=== PATIENT | male | born 1945 | race Caucasian/White ===

== ENCOUNTER 2017-04-17 13:57 | Inpatient (IN) | payer MEDICARE ==
[~2017-04-17] VITALS: Ht 175.3 cm; Wt 57.0 kg
[~2017-04-17 13:57] MED LIST: ACET1CAP18 PO; ATOR20TA15 PO; CLON1 PO; METO50TA11 PO; MIRTA15 PO; PLAV75TA29 PO; SERT-132 PO; TAMS5CAP PO; TRAZ100T4 PO; ULTR50TA5 PO
[2017-04-17 13:59] VITALS: BP 130/55; PULSE 115; RESP 14; TEMP 98.4; O2SAT 95
--- NOTE | 2017-04-17 14:02 | PD ---
Physical Exam Time Seen by Provider: 14:01 Narrative 71yo M c/o not being able to urinate since yesterday. Denies fever, vomiting. Patient seen in triage. VS reviewed. Awaiting bed placement. Data Data Last Documented VS Vital Signs Date Time Temp Pulse Resp B/P Pulse Ox O2 Delivery O2 Flow Rate FiO2 04/17/17 13:59 98.4 115 14 130/55 95 MDM Supervised Visit with CARO: Mikala Salazar Apr 17, 2017 14:02
[2017-04-17 15:01] VITALS: BP 154/66; PULSE 93; RESP 16; O2SAT 98
[2017-04-17] MEDS ORDERED: TRAZ100T6 PO (15:07)
[2017-04-17] MEDS ORDERED: SODIUM CHLOR 0.9% 1000 ML INJ 1,000 ML IV ONE ×3 (15:30→16:45)
[2017-04-17 16:04] LABS: AUTOMATED NEUTROPHIL # 13.7 TH/MM3 (1.8-7.7); BASOPHIL # 0.1 TH/MM3 (0-0.2); BASOPHIL % 0.4 % (0.0-2.0); EOSINOPHIL % 0.1 % (0.0-4.0); HEMATOCRIT 46.3 % (39.0-51.0); HEMO FLAGS DIFF FINAL; LYMPH % 13.9 % (9.0-44.0); LYMPHOCYTE # 2.5 TH/MM3 (1.0-4.8); MEAN CELL VOLUME 95.4 FL (80.0-100.0); MEAN CORPUSCULAR HEMOGLOBIN 32.4 PG (27.0-34.0); MONO % 9.2 % (0.0-8.0); NEUT % 76.4 % (16.0-70.0); PLATELET COUNT 318 TH/MM3 (150-450); RED BLOOD COUNT 4.85 MIL/MM3 (4.50-5.90); WHITE BLOOD COUNT 17.9 TH/MM3 (4.0-11.0)
[2017-04-17 16:09] LABS: BACTERIA, URINE MANY /hpf; BLOOD, URINE SMALL (NEG); COMMENT (UR) CULTURE INDICATED; CULTURE IF INDICATED CULTURE INDICATED; GLUCOSE,URINE NEG (NEG); HYALINE CAST, URINE 9 /lpf (RARE); KETONE, URINE TRACE mg/dL (NEG); MUCUS URINE MANY /lpf (OCC); URINE COLOR YELLOW (YELLW/STRAW)
[2017-04-17 16:16] LABS: NITRITE,URINE POS (NEG)
[2017-04-17 16:27] LABS: ALKALINE PHOSPHATASE 86 U/L (45-117); ALT (GPT) 9 U/L (12-78); TOTAL BILIRUBIN ADULT 0.8 MG/DL (0.2-1.0)
[2017-04-17 16:30] LABS: ANION GAP 9 MEQ/L (5-15); AST (GOT) 13 U/L (15-37); BLOOD UREA NITROGEN 19 MG/DL (7-18); CHLORIDE 99 MEQ/L (98-107); GLOMERULAR FILTRATION RATE 61 ML/MIN (>89); POTASSIUM 3.6 MEQ/L (3.5-5.1); SODIUM (NA) 137 MEQ/L (136-145)
[2017-04-17] MEDS ORDERED: cefTRIAXone INJ 1,000 MG in SODIUM CHLORIDE 0.9% INJ 100 ML IV ONE (16:45)
--- NOTE | 2017-04-17 17:26 | HHI.HP ---
[facility] Service Family Medicine Primary Care Physician Anitra Alexander MD Admission Diagnosis urinary tract infection, sepsis Diagnoses: International Travel<30 Days: No Contact w/Intl Traveler<30days: No Known Affected Area: No History of Present Illness 71 year old male presents with urinary retention and urinary tract infection. He last urinated last night at 10 PM. Besides urinary retention he has no complaints. He reports no dysuria, fevers, night sweats, recent weight loss. He states that he had urinary retention about 6 years ago. He required Hernandez catheter at that time for relief. He followed up with a urologist and nothing was found. He reports no history of BPH or malignancies. He has no sexual activity in the last year. He had some suprapubic tenderness before catheterization but feels fine now. He reports no CVA tenderness. He has not seen blood in his urine. Before the retention he reports no weak stream or difficulty initiating a stream. He reports no recent new medications that could explain retention. There is no foul smell to his urine. He reports no urethral discharge. He has no dry mouth, lightheadedness with standing, fevers, abdominal pain, nausea, vomiting, or diarrhea. His primary care doctor is Dr. Anitra Alexander in the [facility]. Review of Systems Constitutional: DENIES: Diaphoretic episodes, Fatigue, Fever, Weight gain, Weight loss, Chills, Change in appetite, Night Sweats Endocrine: DENIES: Polydipsia, Polyuria Eyes: DENIES: Blurred vision, Photosensitivity Ears, nose, mouth, throat: DENIES: Vertigo, Throat pain, Running Nose, Sinus Pain Respiratory: DENIES: Cough, Wheezing, Sputum production, Shortness of breath Cardiovascular: DENIES: Chest pain, Dyspnea on Exertion, Lower Extremity Edema , Claudication Gastrointestinal: DENIES: Abdominal pain, Black stools, Bloody stools, Constipation, Diarrhea, Nausea, Vomiting, Difficulty Swallowing Genitourinary: DENIES: Urinary frequency, Urinary incontinence, Urgency, Hematuria, Dysuria, Nocturia, Penile Discharge Musculoskeletal: DENIES: Joint pain, Muscle aches, Stiffness, Back pain, Neck pain Integumentary: DENIES: Rash Hematologic/lymphatic: DENIES: Lymphadenopathy Immunologic/allergic: DENIES: Eczema, Urticaria Neurologic: DENIES: Headache, Seizures Psychiatric: COMPLAINS OF: Anxiety, DENIES: Mood changes, Depression Past Family Social History Past Medical History Two LA's One stroke CABG 5 years ago COPD Hyperlipidemia Hypertension Urinary retention and UTI once before Past Surgical History CABG 5 years ago Reported Medications Reported Meds & Active Scripts Active Ultram (Tramadol HCl) 50 Mg Tab 50 Mg PO Q6H PRN Sertraline (Sertraline HCl) 50 Mg Tab 50 Mg PO DAILY Metoprolol Succinate ER 24 HR (Metoprolol Succinate) 50 Mg Tab 50 Mg PO BID Plavix (Clopidogrel Bisulfate) 75 Mg Tab 75 Mg PO DAILY Klonopin (Clonazepam) 1 Mg Tab 1 Mg PO BID Flomax (Tamsulosin HCl) 0.4 Mg Cap 0.4 Mg PO HS Atorvastatin (Atorvastatin Calcium) 20 Mg Tab 20 Mg PO HS Reported Trazodone (Trazodone HCl) 100 Mg Tablet 100 Mg PO HS PRN Mirtazapine 15 Mg Tab 15 Mg PO HS Allergies: Coded Allergies: No Known Allergies (Verified , 04/17/17) Active Ordered Medications Inpatient Medications Atorvastatin Calcium (Lipitor) 20 mg HS PO ; Start 04/17/17 at 21:00; Status UNV Ceftriaxone Sodium 1000 mg/ Sodium Chloride 100 ml @ 200 mls/hr ONCE ONCE IV Last administered on 04/17/17 16:45; Start 04/17/17 at 16:45; Stop 04/17/17 at 17:14; Status DC Clonazepam (KlonoPIN) 1 mg BID PO ; Start 04/17/17 at 21:00; Status UNV Clopidogrel Bisulfate (Plavix) 75 mg DAILY PO ; Start 04/18/17 at 09:00; Status UNV Metoprolol Succinate (Toprol Xl) 50 mg BID PO ; Start 04/17/17 at 21:00; Status UNV Mirtazapine (Remeron) 15 mg HS PO ; Start 04/17/17 at 21:00; Status UNV Non-Formulary Medication 100 mg HS PRN PO SLEEP; Start 04/17/17 at 17:30; Status UNV Sertraline HCl (Zoloft) 50 mg DAILY PO ; Start 04/18/17 at 09:00; Status UNV Sodium Chloride (NS 1000 ml Inj) 1,000 ml @ 999 mls/hr BOLUS ONCE IV Last administered on 04/17/17 17:05; Start 04/17/17 at 16:45; Stop 04/17/17 at 17:45 ; Status DC Tamsulosin HCl (Flomax) 0.4 mg HS PO ; Start 04/17/17 at 21:00; Status UNV Family History Mom of liver cancer Dad of heart attack age 57 Grandson - ulcerative colitis Social History smokes 1/2 pack per day since age 24 Alcohol use: none Drug use: none a year ago Live with daughter, two grandchildren 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 Normal skin turgor. HEAD: Atraumatic. Normocephalic. No temporal or scalp tenderness. EYES: Pupils equal round and reactive. Extraocular motions intact. No scleral icterus. No injection or drainage. ENT: Nose without bleeding, purulent drainage or septal hematoma. Throat without erythema, tonsillar hypertrophy or exudate. Uvula midline. Airway patent. Moist mucous membranes. NECK: Trachea midline. No JVD or lymphadenopathy. Supple, nontender, no meningeal signs. CARDIOVASCULAR: Regular rate and rhythm without murmurs, gallops, or rubs. Pulse in 90's. RESPIRATORY: Clear to auscultation. Breath sounds equal bilaterally. No wheezes , rales, or rhonchi. GASTROINTESTINAL: Abdomen soft, non-tender, nondistended. No hepato-splenomegaly , or palpable masses. No guarding. : No CVA tenderness. Prostate is not palpable on MARGE. No urethral discharge. Hernandez catheter in place with small amount of dark brownish urine. No bladder discomfort with palpation. MUSCULOSKELETAL: Extremities without clubbing, cyanosis, or edema. No joint tenderness, effusion, or edema noted. No calf tenderness. Negative Homans sign bilaterally. NEUROLOGICAL: Awake and alert. Cranial nerves II through XII intact. Motor and sensory grossly within normal limits. Five out of 5 muscle strength in all muscle groups. Normal speech. Laboratory Laboratory Tests Test 04/17/17 15:35 White Blood Count 17.9 Red Blood Count 4.85 Hemoglobin 15.7 Hematocrit 46.3 Mean Corpuscular Volume 95.4 Mean Corpuscular Hemoglobin 32.4 Mean Corpuscular Hemoglobin 34.0 Concent Red Cell Distribution Width 14.0 Platelet Count 318 Mean Platelet Volume 7.9 Neutrophils (%) (Auto) 76.4 Lymphocytes (%) (Auto) 13.9 Monocytes (%) (Auto) 9.2 Eosinophils (%) (Auto) 0.1 Basophils (%) (Auto) 0.4 Neutrophils # (Auto) 13.7 Lymphocytes # (Auto) 2.5 Monocytes # (Auto) 1.6 Eosinophils # (Auto) 0.0 Basophils # (Auto) 0.1 CBC Comment DIFF FINAL Differential Comment Urine Color YELLOW Urine Turbidity HAZY Urine pH 5.0 Urine Specific Kathryn 1.023 Urine Protein TRACE Urine Glucose (UA) NEG Urine Ketones TRACE Urine Occult Blood SMALL Urine Nitrite POS Urine Bilirubin NEG Urine Urobilinogen LESS THAN 2.0 Urine Leukocyte Esterase LARGE Urine RBC 6 Urine WBC 108 Urine WBC Clumps RARE Urine Amorphous Sediment RARE Urine Bacteria MANY Urine Hyaline Casts 9 Urine Mucus MANY Microscopic Urinalysis Comment CULTURE INDICATED Sodium Level 137 Potassium Level 3.6 Chloride Level 99 Carbon Dioxide Level 29.0 Anion Gap 9 Blood Urea Nitrogen 19 Creatinine 1.17 Estimat Glomerular Filtration 61 Rate Random Glucose 107 Calcium Level 9.2 Total Bilirubin 0.8 Aspartate Amino Transf 13 (AST/SGOT) Alanine Aminotransferase 9 (ALT/SGPT) Alkaline Phosphatase 86 Total Protein 7.4 Albumin 3.5 Date/Time Procedure Status Source Growth 04/17/17 17:00 Aerobic Blood Culture Received Blood Peripheral Pending 04/17/17 17:00 Anaerobic Blood Culture Received Blood Peripheral Pending 04/17/17 15:35 Urine Culture Received Urine Clean Catch Pending Result Diagram: 04/17/17 1535 04/17/17 1535 Septic Shock Reassessment Heart: Regular rate and rhythm Lungs: Clear Skin: Warm Capillary Refill: <2 seconds Assessment and Plan Assessment and Plan 71 year old male with acute urinary retention and urinary tract infection. Code Status DNR Discussed Condition With Discussed with Dr. Saunders, will discuss with day team Problem List: (1) Acute urinary retention Status: Acute Plan: Has not urinated since 10 PM last night. No reported history of BPH, but does have BPH in his problem list. On physical exam, prostate is not palpable. BUN 19, Creatinine 1.17. - CT abdomen/pelvis, no contrast, to further evaluate for causes of obstruction. - Consult urology - Continue Tamsulosin 0.4 mg qHS - Maintain Hernandez catheter (2) Urinary tract infection Status: Acute Plan: Urine with nitrites, large eukocyte esterase, 108 WBC, and many bacteria. Pulse up to 115 at admission, now in the 90's. No fevers recorded. Lactic acid normal. WBC 17.9. No CVA tenderness. - Rocephin 1 g daily, started on 04/17. - Give IVF as needed to maintain adequate hydration. - Follow blood cultures - Follow urine cultures, adjust antibiotics as needed. (3) Nutrition, metabolism, and development symptoms Status: Acute Plan: - IVF with NS at maintenance, no weight recorded in chart, nursing order to obtain patient weight - Give regular diet - Monitor electrolytes (4) No contraindication to deep vein thrombosis (DVT) prophylaxis Status: Acute Plan: - Lovenox 40 mg daily - Bilateral SCD's Physician Certification 2 Midnight Certification Type: Admission for Inpatient Services Order for Inpatient Services The services are ordered in accordance with Medicare regulations or non- Medicare payer requirements, as applicable. In the case of services not specified as inpatient-only, they are appropriately provided as inpatient services in accordance with the 2-midnight benchmark. Estimated LOS (days): 3 days is the estimated time the patient will need to remain in the hospital, assuming treatment plan goals are met and no additional complications. Post-Hospital Plan: Home Problem Qualifiers (1) Urinary tract infection: Qualified Code: N30.00 - Acute cystitis without hematuria Timothy Sharma MD R3 Apr 17, 2017 17:26 Alkaline Phosphatase 86 Total Protein 7.4 Albumin 3.5 Date/Time Procedure Status Source Growth 04/17/17 17:00 Aerobic Blood Culture Received Blood Peripheral Pending 04/17/17 17:00 Anaerobic Blood Culture Received Blood Peripheral Pending 04/17/17 15:35 Urine Culture Received Urine Clean Catch Pending Result Diagram: 04/17/17 1535 04/17/17 1535 Septic Shock Reassessment Heart: Regular rate and rhythm Lungs: Clear Skin: Warm Capillary Refill: <2 seconds Assessment and Plan Assessment and Plan 71 year old male with acute urinary retention and urinary tract infection. Code Status DNR Discussed Condition With Discussed with Dr. Saunders, will discuss with day team Problem List: (1) Acute urinary retention Status: Acute Plan: Has not urinated since 10 PM last night. No reported history of BPH, but does have BPH in his problem list. On physical exam, prostate is not palpable. BUN 19, Creatinine 1.17. - CT abdomen/pelvis, no contrast, to further evaluate for causes of obstruction. - Consult urology - Continue Tamsulosin 0.4 mg qHS - Maintain Hernandez catheter (2) Urinary tract infection Status: Acute Plan: Urine with nitrites, large eukocyte esterase, 108 WBC, and many bacteria. Pulse up to 115 at admission, now in the 90's. No fevers recorded. Lactic acid normal. WBC 17.9. No CVA tenderness. - Rocephin 1 g daily, started on 04/17. - Give IVF as needed to maintain adequate hydration. - Follow blood cultures - Follow urine cultures, adjust antibiotics as needed. (3) Nutrition, metabolism, and development symptoms Status: Acute Plan: - IVF with NS at maintenance, no weight recorded in chart, nursing order to obtain patient weight - Give regular diet - Monitor electrolytes (4) No contraindication to deep vein thrombosis (DVT) prophylaxis Status: Acute Plan: - Lovenox 40 mg daily - Bilateral SCD's Physician Certification 2 Midnight Certification Type: Admission for Inpatient Services Order for Inpatient Services The services are ordered in accordance with Medicare regulations or non- Medicare payer requirements, as applicable. In the case of services not specified as inpatient-only, they are appropriately provided as inpatient services in accordance with the 2-midnight benchmark. Estimated LOS (days): 3 days is the estimated time the patient will need to remain in the hospital, assuming treatment plan goals are met and no additional complications. Post-Hospital Plan: Home Timothy Sharma MD R3 Apr 17, 2017 17:26
--- NOTE | 2017-04-17 17:44 | PD ---
HPI Chief Complaint: Complaint Time Seen by Provider: 15:15 Travel History International Travel<30 days: No Contact w/Intl Traveler<30days: No Traveled to known affect area: No History of Present Illness HPI This is a 71-year-old male who reports that he hasn't been able to urinate since yesterday and he has some lower abdominal discomfort and burning his urethra, constant, moderate severity. He denies any fevers, chills, nausea or vomiting. He says this is happened to her before and he needed a Hernandez catheter. He said he went to his urologist and they couldn't find anything wrong. PFSH Past Medical History Blood Disorders: No Bipolar Disorder: Yes Anxiety: Yes Depression: Yes Heart Rhythm Problems: Yes (IRREGULARITY) Cancer: No Cardiovascular Problems: Yes ( STENT X 5) High Cholesterol: Yes Chest Pain: Yes Congestive Heart Failure: No Cerebrovascular Accident: Yes (09/2009) Coronary Artery Disease: Yes Endocrine: No Gastrointestinal Disorders: No Genitourinary: No Hypertension: No Immune Disorder: No Musculoskeletal: No Neurologic: Yes Psychiatric: Yes Reproductive: No Respiratory: No Myocardial Infarction: Yes (x2) Influenza Vaccination: Yes Past Surgical History Abdominal Surgery: No Cardiac Surgery: Yes (cardiac by-pass jul 2009 quad angioplasty right leg) Coronary Artery Bypass Graft: Yes Coronary Stent: Yes (X 5) Ear Surgery: No Endocrine Surgery: No Eye Surgery: No Genitourinary Surgery: No Gynecologic Surgery: No Neurologic Surgery: No Oral Surgery: No Thoracic Surgery: No Tonsillectomy: Yes Other Surgery: Yes (bilat fem-pop bypass) Social History Alcohol Use: Yes (social) Tobacco Use: Yes (1 PPD) Substance Use: No Allergies-Medications (Allergen,Severity, Reaction): Coded Allergies: No Known Allergies (Verified , 04/17/17) Reported Meds & Prescriptions Reported Meds & Active Scripts Active Ultram (Tramadol HCl) 50 Mg Tab 50 Mg PO Q6H PRN Sertraline (Sertraline HCl) 50 Mg Tab 50 Mg PO DAILY Metoprolol Succinate ER 24 HR (Metoprolol Succinate) 50 Mg Tab 50 Mg PO BID Plavix (Clopidogrel Bisulfate) 75 Mg Tab 75 Mg PO DAILY Klonopin (Clonazepam) 1 Mg Tab 1 Mg PO BID Flomax (Tamsulosin HCl) 0.4 Mg Cap 0.4 Mg PO HS Atorvastatin (Atorvastatin Calcium) 20 Mg Tab 20 Mg PO HS Reported Trazodone (Trazodone HCl) 100 Mg Tablet 100 Mg PO HS PRN Mirtazapine 15 Mg Tab 15 Mg PO HS Review of Systems Except as stated in HPI: all other systems reviewed are Neg Physical Exam Narrative GENERAL: Frail, chronically ill-appearing male in no acute distress SKIN: Focused skin assessment warm and dry. HEAD: Atraumatic. Normocephalic. EYES: Pupils equal and round. No injection or drainage. ENT: Moist mucous membranes NECK: Trachea midline. CARDIOVASCULAR: Regular rate and rhythm. No murmur appreciated. RESPIRATORY: Clear to auscultation. Breath sounds equal bilaterally. GASTROINTESTINAL: Abdomen soft, non-tender, nondistended. MUSCULOSKELETAL: No obvious deformities. NEUROLOGICAL: Awake and alert. No obvious cranial nerve deficits. Moving all extremities. PSYCHIATRIC: Appropriate mood and affect; insight and judgment normal. Data Data Last Documented VS Vital Signs Date Time Temp Pulse Resp B/P Pulse Ox O2 Delivery O2 Flow Rate FiO2 04/17/17 15:01 93 16 154/66 98 Room Air 04/17/17 13:59 98.4 Orders Complete Blood Count With Diff (04/17/17 15:17) Comprehensive Metabolic Panel (04/17/17 15:17) Urinary Catheter Insert/Apply (04/17/17 15:17) Urinalysis - C+S If Indicated (04/17/17 15:17) Sodium Chlor 0.9% 1000 Ml Inj (Ns 1000 M (04/17/17 15:30) Urine Culture (04/17/17 15:35) Ceftriaxone Inj (Rocephin Inj) (04/17/17 16:45) Blood Culture (04/17/17 16:42) Lactic Acid Sepsis Protocol (04/17/17 16:42) Sodium Chlor 0.9% 1000 Ml Inj (Ns 1000 M (04/17/17 16:45) Sodium Chlor 0.9% 1000 Ml Inj (Ns 1000 M (04/17/17 16:45) Admit Order (Ed Use Only) (04/17/17 17:05) Labs Laboratory Tests Test 04/17/17 04/17/17 15:35 17:00 White Blood Count 17.9 TH/MM3 Red Blood Count 4.85 MIL/MM3 Hemoglobin 15.7 GM/DL Hematocrit 46.3 % Mean Corpuscular Volume 95.4 FL Mean Corpuscular Hemoglobin 32.4 PG Mean Corpuscular Hemoglobin 34.0 % Concent Red Cell Distribution Width 14.0 % Platelet Count 318 TH/MM3 Mean Platelet Volume 7.9 FL Neutrophils (%) (Auto) 76.4 % Lymphocytes (%) (Auto) 13.9 % Monocytes (%) (Auto) 9.2 % Eosinophils (%) (Auto) 0.1 % Basophils (%) (Auto) 0.4 % Neutrophils # (Auto) 13.7 TH/MM3 Lymphocytes # (Auto) 2.5 TH/MM3 Monocytes # (Auto) 1.6 TH/MM3 Eosinophils # (Auto) 0.0 TH/MM3 Basophils # (Auto) 0.1 TH/MM3 CBC Comment DIFF FINAL Differential Comment Urine Color YELLOW Urine Turbidity HAZY Urine pH 5.0 Urine Specific [place] 1.023 Urine Protein TRACE mg/dL Urine Glucose (UA) NEG mg/dL Urine Ketones TRACE mg/dL Urine Occult Blood SMALL Urine Nitrite POS Urine Bilirubin NEG Urine Urobilinogen LESS THAN 2.0 MG/DL Urine Leukocyte Esterase LARGE Urine RBC 6 /hpf Urine WBC 108 /hpf Urine WBC Clumps RARE Urine Amorphous Sediment RARE Urine Bacteria MANY /hpf Urine Hyaline Casts 9 /lpf Urine Mucus MANY /lpf Microscopic Urinalysis Comment CULTURE INDICATED Sodium Level 137 MEQ/L Potassium Level 3.6 MEQ/L Chloride Level 99 MEQ/L Carbon Dioxide Level 29.0 MEQ/L Anion Gap 9 MEQ/L Blood Urea Nitrogen 19 MG/DL Creatinine 1.17 MG/DL Estimat Glomerular Filtration 61 ML/MIN Rate Random Glucose 107 MG/DL Calcium Level 9.2 MG/DL Total Bilirubin 0.8 MG/DL Aspartate Amino Transf 13 U/L (AST/SGOT) Alanine Aminotransferase 9 U/L (ALT/SGPT) Alkaline Phosphatase 86 U/L Total Protein 7.4 GM/DL Albumin 3.5 GM/DL Lactic Acid Level 1.9 mmol/L MDM Medical Decision Making Medical Screen Exam Complete: Yes Emergency Medical Condition: Yes Interpretation(s) Afebrile, tachycardic, normotensive Leukocytosis of 17.9 76% neutrophils Electrolytes are reassuring Lactic acid is 1.9 Urinalysis: Urinary tract infection Differential Diagnosis Urinary tract infection, pyelonephritis, acute urinary retention, BPH Narrative Course This is a 71-year-old male who presents to the emergency department with decreased urination. He was placed on a monitor and an IV was established. Labs demonstrate a leukocytosis and a lactic acid at 1.9. Urinalysis demonstrates a urinary tract infection. Patient was given a dose of IV ceftriaxone and IV hydration. Hernandez catheter was placed to evaluate for possible urinary retention but the patient had very little urine output. He will be admitted for IV antibiotics in the setting of sepsis Diagnosis Primary Impression: Sepsis Qualified Code: A41.9 - Sepsis, due to unspecified organism Additional Impression: Urinary tract infection Qualified Code: N30.00 - Acute cystitis without hematuria Admitting Information Admitting Physician Requests: Admit Sharona Saunders MD Apr 17, 2017 17:43
[2017-04-17] MEDS ORDERED: SODIUM CHLORIDE 0.9% FLUSH 10 ML FLUSH IV FLUSH PRN (18:00)
[2017-04-17 18:34] VITALS: BP 121/56; PULSE 77; RESP 16; O2SAT 97
--- NOTE | 2017-04-17 19:00 | RADRPT ---
EXAM DATE/TIME: 04/17/2017 18:23 [place] COMPARISON: No previous studies available for comparison. INDICATIONS : Urinary retention.lower back pain. ORAL CONTRAST: No oral contrast ingested. RADIATION DOSE: 4.59 CTDIvol (mGy) MEDICAL HISTORY : Cerebrovascular disease. Cardiovascular disease Hypertension.COPD SURGICAL HISTORY : CABG Coronary artery stent. ENCOUNTER: Initial ACUITY: 1 day PAIN SCALE: 1/10 LOCATION: Abdomen TECHNIQUE: Volumetric scanning of the abdomen and pelvis was performed. Using automated exposure control and ad justment of the mA and/or kV according to patient size, radiation dose was kept as low as reasonably achievable to obtain optimal diagnostic quality images. DICOM format image data is available electro nically for review and comparison. FINDINGS: LOWER LUNGS: The visualized lower lungs are clear. LIVER: Homogeneous density without lesion. There is no dilation of the biliary tree. No calcified gallston es. SPLEEN: Normal size without lesion. PANCREAS: Within normal limits. KIDNEYS: Normal in size and shape. There is no mass, stone, or hydronephrosis. ADRENAL GLANDS: Within normal limits. VASCULAR: There is atherosclerosis and aneurysmal dilatation of the infrarenal portion of the abdominal aorta, 3.9 cm maximum. No evidence of leak or impending rupture. Patient has had aortobifem bypass on the [facility] and also fem-fem bypass. BOWEL/MESENTERY: There is a large amount of stool in the rectum. There is diverticulosis of the sigmoid colon. No acut e inflammatory changes are demonstrated. ABDOMINAL WALL: Within normal limits. RETROPERITONEUM: There is no lymphadenopathy. BLADDER: Decompressed with a Hernandez catheter, grossly unremarkable. REPRODUCTIVE: Within normal limits. INGUINAL: There is no lymphadenopathy or hernia. MUSCULOSKELETAL: Within normal limits for patient age. CONCLUSION: 1. No obstruction or acute inflammatory changes are demonstrated. 2. Bladder decompressed with a Hernandez catheter. 3. Large amount of stool in the rectum. 4. Diverticulosis of the sigmoid colon. No diverticulitis. 5. 3.9 cm infrarenal abdominal aortic aneurysm. No evidence of leak or impending rupture. Previous fe m-fem and right aortobifem bypass. Noncontrast study was done. Homero Miranda MD on April 17, 2017 at 18:55 Board Certified Radiologist. This report was verified electronically.
[2017-04-17] MEDS: SODIUM CHLOR 0.9% 1000 ML INJ 1,000 ML IV SCH (19:05)
[2017-04-17] MEDS ORDERED: traZODone HCL 100 MG TAB PO PRN (19:15)
[2017-04-17 20:00] VITALS: BP 149/67; PULSE 83; RESP 16; TEMP 97.7; O2SAT 97
[2017-04-17] MEDS: SODIUM CHLORIDE 0.9% FLUSH 10 ML FLUSH IV FLUSH SCH (20:43)
[2017-04-17] MEDS: TAMSULOSIN HCL 0.4 MG CAP PO SCH (20:49)
[2017-04-17] MEDS: ENOXAPARIN SODIUM 40 MG/0.4 ML SYRINGE SQ SCH (20:49)
[2017-04-17] MEDS: MIRTAZAPINE 15 MG TAB PO SCH (20:49)
[2017-04-17] MEDS: clonazePAM 1 MG TAB PO SCH (20:49)
[2017-04-17] MEDS: ATORVASTATIN 20 MG TAB PO SCH (20:49)
[2017-04-17] MEDS: METOPROLOL SUCCINATE 50 MG EXTENDED RELEASE TAB PO SCH (20:51)
[2017-04-17] MEDS: DOCUSATE SODIUM 50 MG/SENNA 8.6 MG TAB PO SCH (21:00)
[2017-04-18] VITALS (8 sets, daily range): BP systolic 100–118; BP diastolic 52–63; PULSE 67–85; RESP 16–20; TEMP 97–99.9; O2SAT 91–98
[2017-04-18] MEDS: SODIUM CHLOR 0.9% 1000 ML INJ 1,000 ML IV SCH ×2 (04:30→13:46)
[2017-04-18 05:16] LABS: AUTOMATED NEUTROPHIL # 7.2 TH/MM3 (1.8-7.7); BASOPHIL % 0.2 % (0.0-2.0); EOSINOPHIL # 0.1 TH/MM3 (0-0.4); EOSINOPHIL % 0.9 % (0.0-4.0); HEMATOCRIT 34.3 % (39.0-51.0); HEMO FLAGS DIFF FINAL; LYMPH % 27.6 % (9.0-44.0); LYMPHOCYTE # 3.3 TH/MM3 (1.0-4.8); MEAN CELL VOLUME 95.7 FL (80.0-100.0); MEAN CORPUSCULAR HEMOGLOBIN 32.7 PG (27.0-34.0); MEAN CORPUSCULAR HGB CONC 34.2 % (32.0-36.0); MONO % 11.2 % (0.0-8.0); NEUT % 60.1 % (16.0-70.0); PLATELET COUNT 232 TH/MM3 (150-450); RED BLOOD COUNT 3.59 MIL/MM3 (4.50-5.90); RED CELL DISTRIBUTION WIDTH 13.8 % (11.6-17.2); WHITE BLOOD COUNT 11.9 TH/MM3 (4.0-11.0)
[2017-04-18 05:35] LABS: BICARBONATE 27.4 MEQ/L (21.0-32.0); POTASSIUM 3.6 MEQ/L (3.5-5.1)
[2017-04-18] MEDS: SODIUM CHLORIDE 0.9% FLUSH 10 ML FLUSH IV FLUSH SCH ×2 (09:00→20:44)
[2017-04-18] MEDS: DOCUSATE SODIUM 50 MG/SENNA 8.6 MG TAB PO SCH ×2 (10:28→20:45)
[2017-04-18] MEDS: SERTRALINE HCL 50 MG TAB PO SCH (10:29)
[2017-04-18] MEDS: METOPROLOL SUCCINATE 50 MG EXTENDED RELEASE TAB PO SCH ×2 (10:29→20:44)
[2017-04-18] MEDS: CLOPIDOGREL 75 MG TAB PO SCH (10:29)
[2017-04-18] MEDS: clonazePAM 1 MG TAB PO SCH ×2 (10:29→20:44)
--- NOTE | 2017-04-18 11:15 | PD.CONS ---
[facility] Service Urology Consult Requested By Dr. Sharma Reason for Consult Urinary retention Primary Care Physician Anitra Alexander MD Diagnosis: History of Present Illness 71-year-old gentleman who presented to the emergency room stating that he was unable to urinate. He reports that he had not produced any urine since 10 PM on Monday night and presented to the emergency room Monday afternoon for evaluation. He reports that several years ago he had problems urinating and had a full urologic workup and that no significant abnormalities were found. He had spontaneous return of his voiding pattern and had not had any problems since although he has been taking daily Flomax. He denied any abdominal pain or suprapubic discomfort when he right emergency room and a Hernandez catheter was placed with only 200 cc of urine obtained. Urinalysis was consistent with a UTI and the patient started on antibiotics and admitted. A CT scan of the abdomen and pelvis was performed which failed to demonstrate any significant abnormalities. There was a large amount of stool present in the rectum. Preliminary urine culture results demonstrated gram-negative rods. A urology consult was placed for further recommendations. At the time of consultation the patient was resting comfortably in bed and denied any complaints. He reports that the Hernandez catheter has been draining well. Review of Systems Constitutional: DENIES: Fever, Night Sweats Cardiovascular: DENIES: Chest pain Gastrointestinal: DENIES: Abdominal pain Genitourinary: DENIES: Urgency, Hematuria, Dysuria Except as stated in HPI: all other systems reviewed are Neg Past Family Social History Past Medical History Status post OK 2 Status post CVA COPD Hyperlipidemia Hypertension History urinary retention in the past which spontaneously resolved Past Surgical History Status post CABG Reported Medications Refer to EMR Allergies: Coded Allergies: No Known Allergies (Verified , 04/17/17) Active Ordered Medications Refer to EMR Family History Father of myocardial infarction Mother of liver CA Social History FDC smoker of one pack per day since age 24 Denies alcohol or intravenous drug abuse Physical Exam Vital Signs Date Time Temp Pulse Resp B/P Pulse Ox O2 Delivery O2 Flow Rate FiO2 04/18/17 10:18 93 21 04/18/17 08:00 98.1 81 16 100/55 91 04/18/17 00:00 98.9 85 16 111/63 92 04/17/17 20:00 97.7 83 16 149/67 97 04/17/17 18:34 77 16 121/56 97 Room Air 04/17/17 15:01 93 16 154/66 98 Room Air 04/17/17 13:59 98.4 115 14 130/55 95 Physical Exam GENERAL: This is a well-nourished, well-developed patient, in no apparent distress. SKIN: No rashes, ecchymoses or lesions. Cool and dry. HEAD: Atraumatic. Normocephalic. No temporal or scalp tenderness. EYES: Pupils equal round and reactive. Extraocular motions intact. No scleral icterus. No injection or drainage. ENT: Nose without bleeding, purulent drainage or septal hematoma. Throat without erythema, tonsillar hypertrophy or exudate. Uvula midline. Airway patent. NECK: Trachea midline. No JVD or lymphadenopathy. Supple, nontender, no meningeal signs. GASTROINTESTINAL: Abdomen soft, non-tender, nondistended. No hepato-splenomegaly , or palpable masses. No guarding. GENITOURINARY: Bladder not distended. Hernandez catheter draining yellow urine without hematuria or clots MUSCULOSKELETAL: Extremities without clubbing, cyanosis, or edema. No joint tenderness, effusion, or edema noted. No calf tenderness. Negative Homans sign bilaterally. NEUROLOGICAL: Awake and alert. Cranial nerves II through XII intact. Motor and sensory grossly within normal limits. Five out of 5 muscle strength in all muscle groups. Normal speech. Lab results reviewed: Yes Laboratory Tests Test 04/17/17 04/17/17 04/18/17 15:35 17:00 04:08 White Blood Count 17.9 11.9 Red Blood Count 4.85 3.59 Hemoglobin 15.7 11.7 Hematocrit 46.3 34.3 Mean Corpuscular Volume 95.4 95.7 Mean Corpuscular Hemoglobin 32.4 32.7 Mean Corpuscular Hemoglobin 34.0 34.2 Concent Red Cell Distribution Width 14.0 13.8 Platelet Count 318 232 Mean Platelet Volume 7.9 7.9 Neutrophils (%) (Auto) 76.4 60.1 Lymphocytes (%) (Auto) 13.9 27.6 Monocytes (%) (Auto) 9.2 11.2 Eosinophils (%) (Auto) 0.1 0.9 Basophils (%) (Auto) 0.4 0.2 Neutrophils # (Auto) 13.7 7.2 Lymphocytes # (Auto) 2.5 3.3 Monocytes # (Auto) 1.6 1.3 Eosinophils # (Auto) 0.0 0.1 Basophils # (Auto) 0.1 0.0 CBC Comment DIFF FINAL DIFF FINAL Differential Comment Urine Color YELLOW Urine Turbidity HAZY Urine pH 5.0 Urine Specific [place] 1.023 Urine Protein TRACE Urine Glucose (UA) NEG Urine Ketones TRACE Urine Occult Blood SMALL Urine Nitrite POS Urine Bilirubin NEG Urine Urobilinogen LESS THAN 2.0 Urine Leukocyte Esterase LARGE Urine RBC 6 Urine WBC 108 Urine WBC Clumps RARE Urine Amorphous Sediment RARE Urine Bacteria MANY Urine Hyaline Casts 9 Urine Mucus MANY Microscopic Urinalysis Comment CULTURE INDICATED Sodium Level 137 144 Potassium Level 3.6 3.6 Chloride Level 99 110 Carbon Dioxide Level 29.0 27.4 Anion Gap 9 7 Blood Urea Nitrogen 19 14 Creatinine 1.17 0.68 Estimat Glomerular Filtration 61 115 Rate Random Glucose 107 66 Calcium Level 9.2 7.8 Total Bilirubin 0.8 Aspartate Amino Transf 13 (AST/SGOT) Alanine Aminotransferase 9 (ALT/SGPT) Alkaline Phosphatase 86 Total Protein 7.4 Albumin 3.5 Lactic Acid Level 1.9 Date/Time Procedure Status Source Growth 04/17/17 17:00 Aerobic Blood Culture - Preliminary Resulted Blood Peripheral NO GROWTH IN 1 DAY 04/17/17 17:00 Anaerobic Blood Culture - Preliminary Resulted Blood Peripheral NO GROWTH IN 1 DAY 04/17/17 15:35 Urine Culture Received Urine Clean Catch Pending Result Diagram: 04/18/17 0408 04/18/17 0408 Personally reviewed images: Yes Imaging Last Impressions Abdomen/Pelvis CT 04/17/17 0000 Signed Impressions: Service Date/Time: Monday, April 17, 2017 18:23 - CONCLUSION: 1. No obstruction or acute inflammatory changes are demonstrated. 2. Bladder decompressed with a Hernandez catheter. 3. Large amount of stool in the rectum. 4. Diverticulosis of the sigmoid colon. No diverticulitis. 5. 3.9 cm infrarenal abdominal aortic aneurysm. No evidence of leak or impending rupture. Previous fem-fem and right aortobifem bypass. Noncontrast study was done. Homero Miranda MD Assessment and Plan Assessment and Plan Urologic impression: #1. urinary tract infection possibly related to dehydration #2 recent development of oliguria likely related to dehydration #3 patient was not in urinary retention upon arrival to the emergency room as only 200 cc of urine was evacuated upon placement of Hernandez Recommendations: #1 agree with hydration and present antibiotic therapy #2 follow up on urine culture results and adjust for sensitivities if necessary #3 DC Hernandez catheter tomorrow morning for voiding trial #4 continue with daily Flomax 0.4 mg by mouth daily Karl Landers MD Apr 18, 2017 11:15
--- NOTE | 2017-04-18 15:08 | HHI.FPPN ---
Subjective Remarks Patient seen, examined and discussed with Dr. Nelson. This is a 71-year-old male who presented to the emergency department with some suprapubic tenderness and inability to void his bladder. This happened to him in the past and he has been on Flomax at home. Please see history and physical examination for this admission for additional past, family and social history. He lives with his daughter and grandchildren. They struggle with transportation. He reports to me today that he has gotten increasingly weaker, and requests to go back to rehabilitation. Since admission, at which time he was catheterized, he has no further suprapubic discomfort. He was found to have significant infection in his urine and was placed on IV antibiotics. Objective Vitals Vital Signs Date Time Temp Pulse Resp B/P Pulse Ox O2 Delivery O2 Flow Rate FiO2 04/18/17 12:00 99.9 81 20 101/52 93 04/18/17 10:18 93 21 04/18/17 08:00 98.1 81 16 100/55 91 04/18/17 00:00 98.9 85 16 111/63 92 04/17/17 20:00 97.7 83 16 149/67 97 04/17/17 18:34 77 16 121/56 97 Room Air I/O 04/17/17 04/17/17 04/17/17 04/18/17 04/18/17 04/18/17 07:00 15:00 23:00 07:00 15:00 23:00 Intake Total 240 ml 1255 ml Output Total 200 ml 800 ml Balance 40 ml 455 ml Intake Oral 240 ml 240 ml IV Total 1015 ml Output Urine Total 200 ml 800 ml # Bowel Movements 0 0 Result Diagram: 04/18/17 0408 04/18/17 0408 Other Results Microbiology Date/Time Procedure Status Source Growth 04/17/17 17:00 Aerobic Blood Culture - Preliminary Resulted Blood Peripheral NO GROWTH IN 1 DAY 04/17/17 17:00 Anaerobic Blood Culture - Preliminary Resulted Blood Peripheral NO GROWTH IN 1 DAY 04/17/17 15:35 Urine Culture - Preliminary Resulted Urine Clean Catch Gram Negative Gael Imaging Last Impressions Abdomen/Pelvis CT 04/17/17 0000 Signed Impressions: Service Date/Time: Monday, April 17, 2017 18:23 - CONCLUSION: 1. No obstruction or acute inflammatory changes are demonstrated. 2. Bladder decompressed with a Hernandez catheter. 3. Large amount of stool in the rectum. 4. Diverticulosis of the sigmoid colon. No diverticulitis. 5. 3.9 cm infrarenal abdominal aortic aneurysm. No evidence of leak or impending rupture. Previous fem-fem and right aortobifem bypass. Noncontrast study was done. Homero Miranda MD Objective Remarks GENERAL: Alert, in no acute distress. Catheter in his bladder. SKIN: No rashes, ecchymoses or lesions. Cool and dry. HEAD: NC/AT EYES: PERRL. EOMI. No conjunctival injection or drainage. ENT: MMM, OP without erythema, tonsillar swelling, or exudate. NECK: [Supple, no lymphadenopathy.] [No JVD.] CARDIOVASCULAR: NRRR. Normal S1/S2. No MRG RESPIRATORY: CTAB. No crackles or wheezes. Diminished breath sounds throughout GASTROINTESTINAL: Abdomen soft, non-distended, active bowel sounds, no suprapubic tenderness. No hepato-splenomegaly or palpable masses. MUSCULOSKELETAL: Extremities without clubbing, cyanosis, or edema. Fingers are nicotine stained. NEUROLOGICAL: Awake and alert. Cranial nerves II through XII grossly intact. Moves all extremities without difficulty. Normal speech. A/P Assessment and Plan 71 year old male with acute urinary retention and urinary tract infection. Discharge Planning Anticipate removing Hernandez tomorrow for a voiding trial. Will look into transferring to rehabilitation for significant deconditioning. Attending Attestation Patient seen and examined. Case reviewed and discussed with the resident team. Agree with plan of care as discussed with me and documented in the resident note. Problem List: (1) Acute urinary retention Status: Acute Plan: Has not urinated since 10 PM last night. No reported history of BPH, but does have BPH in his problem list. On physical exam, prostate is not palpable. BUN 19, Creatinine 1.17. - CT abdomen/pelvis, no contrast, to further evaluate for causes of obstruction. - Consult urology - Continue Tamsulosin 0.4 mg qHS - Maintain Hernandez catheter (2) Urinary tract infection Status: Acute Plan: Urine with nitrites, large eukocyte esterase, 108 WBC, and many bacteria. Pulse up to 115 at admission, now in the 90's. No fevers recorded. Lactic acid normal. WBC 17.9. No CVA tenderness. - Rocephin 1 g daily, started on 04/17. - Give IVF as needed to maintain adequate hydration. - Follow blood cultures - Follow urine cultures, adjust antibiotics as needed. (3) Nutrition, metabolism, and development symptoms Status: Acute Plan: - IVF with NS at maintenance, no weight recorded in chart, nursing order to obtain patient weight - Give regular diet - Monitor electrolytes (4) No contraindication to deep vein thrombosis (DVT) prophylaxis Status: Acute Plan: - Lovenox 40 mg daily - Bilateral SCD's Problem Qualifiers (1) Urinary tract infection: Qualified Code: N30.00 - Acute cystitis without hematuria Anitra Alexander MD Apr 18, 2017 15:08
--- NOTE | 2017-04-18 15:57 | HHI.FPPN ---
Subjective Remarks Patient seen and examined this morning by medical team. Patient reports no acute events overnight. Patient states that he felt "immediate relief" once his Hernandez catheter was inserted. He currently has no abdominal or suprapubic pain. He has no other complaints. He denies any recent fevers, chills, shortness of breath, chest pain, NVD, abdominal pain, or calf tenderness. Objective Vitals Vital Signs Date Time Temp Pulse Resp B/P Pulse Ox O2 Delivery O2 Flow Rate FiO2 04/18/17 12:00 99.9 81 20 101/52 93 04/18/17 10:18 93 21 04/18/17 08:00 98.1 81 16 100/55 91 04/18/17 00:00 98.9 85 16 111/63 92 04/17/17 20:00 97.7 83 16 149/67 97 04/17/17 18:34 77 16 121/56 97 Room Air I/O 04/17/17 04/17/17 04/17/17 04/18/17 04/18/17 04/18/17 07:00 15:00 23:00 07:00 15:00 23:00 Intake Total 240 ml 1255 ml Output Total 200 ml 800 ml Balance 40 ml 455 ml Intake Oral 240 ml 240 ml IV Total 1015 ml Output Urine Total 200 ml 800 ml # Bowel Movements 0 0 Result Diagram: 04/18/17 0408 04/18/17 040 Objective Remarks GENERAL elderly gentleman laying on hospital bed in no acute distress. SKIN: No rashes, ecchymoses or lesions. Cool and dry. HEENT: Atraumatic, normocephalic with EOMI. No rhinorrhea. MMM. CARDIOVASCULAR: Regular rate and rhythm with no MGR appreciated. RESPIRATORY: CTAB. Clear to auscultation bilaterally with no CRW. GASTROINTESTINAL: Abdomen soft, non-distended with positive bowel sounds. No masses appreciated. suprapubic tenderness. MUSCULOSKELETAL: Extremities without cyanosis or edema.. Fingers are nicotine stained. NEUROLOGICAL: Awake and alert. Cranial nerves II through XII grossly intact. Moves all extremities without difficulty. Normal speech. Normal interaction with medical staff. A/P Assessment and Plan 71 year old male with acute urinary retention and urinary tract infection. Discharge Planning Anticipate removing Hernandez tomorrow for a voiding trial. Will look into transferring to rehabilitation for significant deconditioning. Problem List: (1) Acute urinary retention Status: Acute Plan: Has not urinated since 10 PM last night. No reported history of BPH, but does have BPH in his problem list. On physical exam, prostate is not palpable. BUN 19, Creatinine 1.17. - CT abdomen/pelvis, no contrast, to further evaluate for causes of obstruction. - Consult urology , recommends discontinue Hernandez catheter tomorrow, 04/19, with a voiding trial. - Continue Tamsulosin 0.4 mg qHS (2) Urinary tract infection Status: Acute Plan: Urine with nitrites, large eukocyte esterase, 108 WBC, and many bacteria. Pulse up to 115 at admission, now in the 90's. No fevers recorded. Lactic acid normal. WBC 17.9. No CVA tenderness. - Rocephin 1 g daily, started on 04/17. - Give IVF as needed to maintain adequate hydration. - Blood Cultures: NTD -Urine culture: Gram-negative cris, further identification pending (3) Nutrition, metabolism, and development symptoms Status: Acute Plan: - IVF with NS at maintenance, no weight recorded in chart, nursing order to obtain patient weight - Give regular diet - Monitor electrolytes (4) No contraindication to deep vein thrombosis (DVT) prophylaxis Status: Acute Plan: - Lovenox 40 mg daily - Bilateral SCD's Problem Qualifiers (1) Urinary tract infection: Qualified Code: N30.00 - Acute cystitis without hematuria René Nelson MD R2 Apr 18, 2017 15:57
[2017-04-18] MEDS ORDERED: cefTRIAXone INJ 1,000 MG in SODIUM CHLORIDE 0.9% INJ 100 ML IV SCH (17:00)
[2017-04-18] MEDS: TAMSULOSIN HCL 0.4 MG CAP PO SCH (20:44)
[2017-04-18] MEDS: MIRTAZAPINE 15 MG TAB PO SCH (20:44)
[2017-04-18] MEDS: ENOXAPARIN SODIUM 40 MG/0.4 ML SYRINGE SQ SCH (20:44)
[2017-04-18] MEDS: ATORVASTATIN 20 MG TAB PO SCH (20:45)
[2017-04-19] MEDS: SODIUM CHLOR 0.9% 1000 ML INJ 1,000 ML IV SCH ×2 (00:42→10:30)
[2017-04-19 07:10] LABS: HEMATOCRIT 33.1 % (39.0-51.0); MEAN CELL VOLUME 95.6 FL (80.0-100.0); MEAN CORPUSCULAR HEMOGLOBIN 32.5 PG (27.0-34.0); PLATELET COUNT 216 TH/MM3 (150-450); RED BLOOD COUNT 3.47 MIL/MM3 (4.50-5.90); RED CELL DISTRIBUTION WIDTH 13.7 % (11.6-17.2); REVIEW FLAG FINAL; WHITE BLOOD COUNT 8.7 TH/MM3 (4.0-11.0)
[2017-04-19 07:24] LABS: BICARBONATE 26.8 MEQ/L (21.0-32.0); POTASSIUM 3.6 MEQ/L (3.5-5.1)
[2017-04-19 08:00] VITALS: BP 129/57; PULSE 67; RESP 18; TEMP 96; O2SAT 94
[2017-04-19] MEDS: SODIUM CHLORIDE 0.9% FLUSH 10 ML FLUSH IV FLUSH SCH (09:00)
[2017-04-19] MEDS: DOCUSATE SODIUM 50 MG/SENNA 8.6 MG TAB PO SCH (09:00)
[2017-04-19] MEDS: CLOPIDOGREL 75 MG TAB PO SCH (09:01)
[2017-04-19] MEDS: METOPROLOL SUCCINATE 50 MG EXTENDED RELEASE TAB PO SCH (09:01)
[2017-04-19] MEDS: SERTRALINE HCL 50 MG TAB PO SCH (09:01)
[2017-04-19] MEDS: clonazePAM 1 MG TAB PO SCH (09:01)
[2017-04-19 12:00] VITALS: BP 114/56; PULSE 70; RESP 18; TEMP 98.9; O2SAT 94
--- NOTE | 2017-04-19 12:24 | HHI.FPPN ---
Subjective Remarks Patient seen and examined bedside; patient in no acute distress. Patient states there was some bleeding when the Hernandez was removed. However, he is not experiencing any current penile pain. He has not voided since the Hernandez was removed. Patient is feeling better today than yesterday and he would like to go home instead of going to a rehabilitation center. Patient denies any fever/ chills overnight. He shouldn't denies any chest pain/shortness of breath/ dizziness. (Kirsty Cuevas MD R2) Objective Vitals Vital Signs Date Time Temp Pulse Resp B/P Pulse Ox O2 Delivery O2 Flow Rate FiO2 04/19/17 08:00 96.0 67 18 129/57 94 04/18/17 23:55 97.9 67 16 110/53 96 04/18/17 20:16 98.2 70 17 118/55 98 04/18/17 18:08 94 21 04/18/17 16:00 97.0 73 16 105/52 94 I/O 04/18/17 04/18/17 04/18/17 04/19/17 04/19/17 04/19/17 06:59 14:59 22:59 06:59 14:59 22:59 Intake Total 1495 ml 480 ml 380 ml 2560 ml Output Total 1000 ml 550 ml 800 ml 1000 ml 450 ml Balance 495 ml -70 ml -420 ml 1560 ml -450 ml Intake Oral 480 ml 480 ml 380 ml 380 ml IV Total 1015 ml 2180 ml Output Urine Total 1000 ml 550 ml 800 ml 1000 ml 450 ml # Bowel Movements 0 0 1 1 (Kirsty Cuevas MD R2) Result Diagram: 04/19/1761304/19/17613 Objective Remarks GENERAL elderly gentleman laying on hospital bed in no acute distress. SKIN: No rashes, ecchymoses or lesions. Cool and dry. HEENT: Atraumatic, normocephalic with EOMI. No rhinorrhea. MMM. CARDIOVASCULAR: Regular rate and rhythm with no MGR appreciated. RESPIRATORY: CTAB. Clear to auscultation bilaterally with no CRW. GASTROINTESTINAL: Abdomen soft, non-distended with positive bowel sounds. No masses appreciated. suprapubic tenderness. MUSCULOSKELETAL: Extremities without cyanosis or edema.. Fingers are nicotine stained. NEUROLOGICAL: Awake and alert. Cranial nerves II through XII grossly intact. Moves all extremities without difficulty. Normal speech. Normal interaction with medical staff. (Kirsty Cuevas MD R2) A/P Assessment and Plan 71 year old male with acute urinary retention and urinary tract infection, pending void trial. Discharge Planning Anticipate discharge to home after voiding trial. (Kirsty Cuevas MD R2) Attending Attestation Patient seen and examined. Case reviewed and discussed with the resident team. Agree with plan of care as discussed with me and documented in the resident note. (Anitra Alexander MD) Problem List: (1) Acute urinary retention Status: Acute Plan: No reported history of BPH, but does have BPH in his problem list. On physical exam, prostate was not palpable. BUN/creatinine within normal limits - CT abdomen/pelvis, no contrast : Negative - Hernandez discontinued, pending a void trial - Continue Tamsulosin 0.4 mg qHS (2) Urinary tract infection Status: Acute Plan: Urine with nitrites, large eukocyte esterase, 108 WBC, and many bacteria. - Urine culture: Positive Escherichia colisensitive to Cipro, nitrofurantoin, ceftriaxone - Pulse up to 115 at admission, now in the 90's. No fevers recorded. Lactic acid normal. No signs of septicemia. No CVA tenderness. - Rocephin 1 g daily, started on 04/17. - Give IVF as needed to maintain adequate hydration. - Blood Cultures: NTD (3) Nutrition, metabolism, and development symptoms Status: Acute Plan: - IVF with NS at maintenance, no weight recorded in chart, nursing order to obtain patient weight - Give regular diet - Monitor electrolytes (4) No contraindication to deep vein thrombosis (DVT) prophylaxis Status: Acute Plan: - Lovenox 40 mg daily - Bilateral SCD's (Kirsty Cuevas MD R2) Problem Qualifiers (1) Urinary tract infection: Qualified Code: N30.00 - Acute cystitis without hematuria Kirsty Cuevas MD R2 Apr 19, 2017 12:23 Anitra Alexander MD Apr 19, 2017 15:50
--- NOTE | 2017-04-19 15:48 | HHI.DCPOC ---
Discharge Care Plan Diagnosis: (1) Urinary tract infection (2) Acute urinary retention Goals to Promote Your Health * To prevent worsening of your condition and complications * To maintain your health at the optimal level Directions to Meet Your Goals Take your medications as prescribed Follow your dietary instruction Follow activity as directed Keep your appointments as scheduled Take your immunizations and boosters as scheduled If your symptoms worsen call your PCP, if no PCP go to Urgent Care Center or Emergency Room Smoking is Dangerous to Your Health. Avoid second hand smoke Call the 24-hour hour crisis hotline for domestic abuse at René Nelson MD R2 Apr 19, 2017 15:48
[2017-04-19] MEDS ORDERED: CIPR250T52 PO (15:50)
[2017-04-19] MEDS ORDERED: CIPROFLOXACIN 250 MG TAB PO SCH (21:00)
--- NOTE | 2017-04-20 05:56 | HHI.DS ---
Discharge Summary Admission Date Apr 17, 2017 at 17:08 Admitting Diagnosis urinary tract infection, sepsis (1) Acute urinary retention Plan: No reported history of BPH, but does have BPH in his problem list. On physical exam, prostate was not palpable. BUN/creatinine within normal limits - CT abdomen/pelvis, no contrast : Negative - Hernandez discontinued, pending a void trial - Continue Tamsulosin 0.4 mg qHS (2) Urinary tract infection Plan: Urine with nitrites, large eukocyte esterase, 108 WBC, and many bacteria. - Urine culture: Positive Escherichia colisensitive to Cipro, nitrofurantoin, ceftriaxone - Pulse up to 115 at admission, now in the 90's. No fevers recorded. Lactic acid normal. No signs of septicemia. No CVA tenderness. - Rocephin 1 g daily, started on 04/17. - Give IVF as needed to maintain adequate hydration. - Blood Cultures: NTD (3) Nutrition, metabolism, and development symptoms Plan: - IVF with NS at maintenance, no weight recorded in chart, nursing order to obtain patient weight - Give regular diet - Monitor electrolytes (4) No contraindication to deep vein thrombosis (DVT) prophylaxis Plan: - Lovenox 40 mg daily - Bilateral SCD's Brief History 71 year old male presents with urinary retention and urinary tract infection. He last urinated last night at 10 PM. Besides urinary retention he has no complaints. He reports no dysuria, fevers, night sweats, recent weight loss. He states that he had urinary retention about 6 years ago. He required Hernandez catheter at that time for relief. He followed up with a urologist and nothing was found. He reports no history of BPH or malignancies. He has no sexual activity in the last year. He had some suprapubic tenderness before catheterization but feels fine now. He reports no CVA tenderness. He has not seen blood in his urine. Before the retention he reports no weak stream or difficulty initiating a stream. He reports no recent new medications that could explain retention. There is no foul smell to his urine. He reports no urethral discharge. He has no dry mouth, lightheadedness with standing, fevers, abdominal pain, nausea, vomiting, or diarrhea. His primary care doctor is Dr. Anitra Alexander in the [facility]. CBC/BMP: 04/19/1714 04/19/17 0614 Significant Findings Laboratory Tests Test 04/17/17 04/18/17 04/19/17 15:35 04:08 06:14 Blood Urea Nitrogen 19 MG/DL (7-18) Estimat Glomerular Filtration 61 ML/MIN (>89) Rate Random Glucose 107 MG/DL 66 MG/DL (74-106) (74-106) Aspartate Amino Transf 13 U/L (15-37) (AST/SGOT) Alanine Aminotransferase 9 U/L (12-78) (ALT/SGPT) White Blood Count 17.9 TH/MM3 11.9 TH/MM3 (4.0-11.0) (4.0-11.0) Neutrophils (%) (Auto) 76.4 % (16.0-70.0) Monocytes (%) (Auto) 9.2 % (0.0-8.0) 11.2 % (0.0-8.0) Neutrophils # (Auto) 13.7 TH/MM3 (1.8-7.7) Monocytes # (Auto) 1.6 TH/MM3 1.3 TH/MM3 (0-0.9) (0-0.9) Urine Turbidity HAZY (CLEAR) Urine Ketones TRACE mg/dL (NEG) Urine Occult Blood SMALL (NEG) Urine Nitrite POS (NEG) Urine Leukocyte Esterase LARGE (NEG) Urine RBC 6 /hpf (0-3) Urine WBC 108 /hpf (0-5) Urine WBC Clumps RARE (NONE) Urine Bacteria MANY /hpf (NONE) Urine Mucus MANY /lpf (OCC) Red Blood Count 3.59 MIL/MM3 3.47 MIL/MM3 (4.50-5.90) (4.50-5.90) Hemoglobin 11.7 GM/DL 11.3 GM/DL (13.0-17.0) (13.0-17.0) Hematocrit 34.3 % 33.1 % (39.0-51.0) (39.0-51.0) Chloride Level 110 MEQ/L 114 MEQ/L (98-107) (98-107) Calcium Level 7.8 MG/DL 7.8 MG/DL (8.5-10.1) (8.5-10.1) Sodium Level 147 MEQ/L (136-145) PE at Discharge GENERAL elderly gentleman laying on hospital bed in no acute distress. SKIN: No rashes, ecchymoses or lesions. Cool and dry. HEENT: Atraumatic, normocephalic with EOMI. No rhinorrhea. MMM. CARDIOVASCULAR: Regular rate and rhythm with no MGR appreciated. RESPIRATORY: CTAB. Clear to auscultation bilaterally with no CRW. GASTROINTESTINAL: Abdomen soft, non-distended with positive bowel sounds. No masses appreciated. suprapubic tenderness. MUSCULOSKELETAL: Extremities without cyanosis or edema.. Fingers are nicotine stained. NEUROLOGICAL: Awake and alert. Cranial nerves II through XII grossly intact. Moves all extremities without difficulty. Normal speech. Normal interaction with medical staff. Discharge Disposition: Discharge Home Discharge Instructions DIET: Follow Instructions for: As Tolerated, No Restrictions Activities you can perform: Regular-No Restrictions René Nelson MD R2 Apr 20, 2017 05:56
== END 2017-04-19 16:43 | disposition home or self-care (01) | DRG 690 ==
LOC: NEPE 13:57 → NEDA 17:08 → N07A 20:32
PROVIDERS: ADMIT Family Medicine; ATTEND Family Medicine
DX: N39.0 Urinary tract infection, site not specified (principal); B96.20 Unspecified Escherichia coli [E. coli] as the cause of diseases classified elsewhere; J44.9 Chronic obstructive pulmonary disease, unspecified; R33.9 Retention of urine, unspecified; Z66 Do not resuscitate; Z86.73 Personal history of transient ischemic attack (TIA), and cerebral infarction without residual deficits; I25.10 Atherosclerotic heart disease of native coronary artery without angina pectoris; Z95.1 Presence of aortocoronary bypass graft; I25.2 Old myocardial infarction; E78.5 Hyperlipidemia, unspecified; I10 Essential (primary) hypertension; Z87.440 Personal history of urinary (tract) infections; F17.210 Nicotine dependence, cigarettes, uncomplicated; E86.0 Dehydration
CPT/HCPCS: 74176; 80048; 80053; 81001; 83605; 85025; 85027; 87040; 87077; 87086; 87186; 96361; 96365; J0696; J1650; J7030